=== PATIENT | male | born 1960 | race Caucasian/White ===

== ENCOUNTER 2019-01-08 10:16 | Emergency (ER) | payer MEDICARE ==
--- NOTE | 2019-01-08 10:38 | ED ---
Neurological HPI - HPI Summary HPI Summary: Pt is a 58 y/o M presenting to the ED brought in by EMS for seizures. LEVEL 5 CAVEAT: Full hx and physical is unobtainable due to the pts present altered mental status. Per EMS, the pts states he has early stages of dementia, but EMS is unsure what his baseline normally looks like. He complains of R arm/ shoulder/chest pain, and has an abrasion on his forehead from a seizure he had at 0400 today. - History of Current Complaint Chief Complaint: EDSeizure Stated Complaint: SEISURE PER EMS Hx Obtained From: EMS Hx From Patient Unobtainable Due To: Dementia Onset/Duration: Sudden Onset, Started hours ago, Resolved Timing: Intermittent Episodes Lasting: - minutes Onset Severity: Moderate Current Severity: Moderate Seizure Severity: Moderate Number of Seizures: 2 Pain Intensity: 5 Pain Scale Used: 0-10 Numeric Aggravating: Unknown Alleviating: Unknown Associated Signs and Symptoms: Positive: Pain, AMS Related Hx: Anticoagulants, Seizure - Additional Pertinent History Primary Care Physician: ABHAY - Allergy/Home Medications Allergies/Adverse Reactions: Allergies Allergy/AdvReac Type Severity Reaction Status Date / Time Adhesive Tape Allergy Rash Verified 01/08/19 10:36 ampicillin Allergy Hives Verified 01/08/19 13:12 aspirin Allergy Hives Verified 01/08/19 13:12 bupropion Allergy Unknown Verified 01/08/19 13:12 Reaction Details fentanyl [From Duragesic] Allergy Rash Verified 01/08/19 13:12 insulin detemir Allergy Hives Verified 01/08/19 13:12 [From Levemir U-100 Insulin] latex Allergy Rash Verified 01/08/19 13:12 Penicillins Allergy Hives Verified 01/08/19 13:12 sertraline Allergy Hives Verified 01/08/19 13:12 Home Medications: Home Medications Amitriptyline TAB* [Elavil TAB*] 10 mg PO BEDTIME 01/08/19 [History Confirmed ] Clotrimazole/Betamethasone* [Lotrisone Cream*] 1 applic TOPICAL BID 01/08/19 [ History Confirmed 01/08/19] Dicyclomine CAP* [Bentyl CAP*] 20 mg PO QID 01/08/19 [History Confirmed 01/08/19 ] Digoxin TAB* [Lanoxin TAB*] 0.25 mg PO DAILY 01/08/19 [History Confirmed ] Fluoxetine HCl 80 mg PO DAILY 01/08/19 [History Confirmed 01/08/19] Furosemide TAB* [Lasix TAB*] 20 mg PO SUWEFRSA 01/08/19 [History Confirmed 01/08] Furosemide TAB* [Lasix TAB*] 40 mg PO MOTUTH 01/08/19 [History Confirmed ] Gabapentin CAP(*) [Neurontin 300 CAP(*)] 300 mg PO 1700 01/08/19 [History Confirmed 01/08/19] Gabapentin CAP(*) [Neurontin 300 CAP(*)] 600 mg PO BID 01/08/19 [History Confirmed 01/08/19] Insulin GLARGINE(*) [Lantus(*)] 40 units SUBCUT BEDTIME 01/08/19 [History Confirmed 01/08/19] Insulin GLARGINE(*) [Lantus(*)] 50 units SUBCUT DAILY 01/08/19 [History Confirmed 01/08/19] Insulin LISPRO* [HumaLOG*] 0 - 100 units SUBCUT .TID-QID 01/08/19 [History Confirmed 01/08/19] Levetiracetam XR TAB(NF) [Keppra XR (NF)] 750 mg PO BID 01/08/19 [History Confirmed 01/08/19] Levothyroxine TAB* [Synthroid TAB*] 50 mcg PO QAM 01/08/19 [History Confirmed ] Psyllium Husk (with Sugar) [Metamucil Original Textur] 48.57 % PO DAILY PRN 12/24 [History Confirmed 01/08/19] Simvastatin (NF) [Zocor (NF)] 40 mg PO QPM 01/08/19 [History Confirmed 01/08/19] Triamcinolone 0.1% CREAM(NF) [Kenalog Cream 0.1%(NF)] 1 applic TOPICAL BID 01/08 [History Confirmed 01/08/19] Warfarin TAB(*) [Coumadin TAB(*)] 2 mg PO DAILY 01/08/19 [History Confirmed 12/24] dilTIAZem HCl [Cartia Xt] 120 mg PO DAILY 01/08/19 [History Confirmed 01/08/19] fentaNYL PATCH 12 MCG/HR * [Duragesic Patch 12 Mcg/Hr *] 12 mcg TRANSDERM Q72H 01/08/19 [History Confirmed 01/08/19] fentaNYL PATCH 25 MCG/HR* [Duragesic PATCH 25 Mcg/Hr*] 25 mcg TRANSDERM Q72H 12/24 [History Confirmed 01/08/19] PMH/Surg Hx/FS Hx/Imm Hx Previously Healthy: No Endocrine/Hematology History: Reports: Hx Anticoagulant Therapy, Hx Diabetes Cardiovascular History: Reports: Hx Atrial Fibrillation, Hx Hypercholesterolemia , Hx Hypertension, Other Cardiovascular Problems/Disorders - AFIB, HX DVT 2011 Denies: Hx Congestive Heart Failure, Hx Coronary Artery Disease, Hx Myocardial Infarction Respiratory History: Reports: Hx Chronic Obstructive Pulmonary Disease (COPD), Hx Pulmonary Embolism, Hx Sleep Apnea GI History: Reports: Hx Gastroesophageal Reflux Disease, Hx Irritable Bowel History: Denies: Hx Renal Disease Musculoskeletal History: Reports: Hx Arthritis, Other Musculoskeletal History - spinal stenosis, herniated disc Sensory History: Reports: Hx Contacts or Glasses Denies: Hx Hearing Aid Opthamlomology History: Reports: Hx Contacts or Glasses Neurological History: Reports: Hx Seizures, Other Neuro Impairments/Disorders - TREMORS BILAT HANDS Psychiatric History: Reports: Hx Anxiety, Hx Depression, Hx Community Mental Health Tx Denies: Hx Suicide Attempt - Surgical History Surgery Procedure, Year, and Place: Tonsillectomy, 1970, [facility] in [place], [place]. Bilateral hernia repair, 1972, [facility] in [place], [place]. Appendectomy, 1984, [facility] in [place], [place]. Left total knee replacement , 1991, [place], [place] Hx Anesthesia Reactions: Yes - agitation/agression post sedation - Immunization History Date of Tetanus Vaccine: up to date Date of Influenza Vaccine: up to date Infectious Disease History: No Infectious Disease History: Denies: Traveled Outside the [place] in Last 30 Days - Family History Known Family History: Positive: Cardiac Disease - sister, Diabetes - Social History Alcohol Use: Rare Hx Substance Use: No Substance Use Type: Reports: None Hx Tobacco Use: Yes Smoking Status (MU): Former Smoker Type: Cigarettes Length of Time of Smoking/Using Tobacco: ON AND OFF SINCE AGE 12 Have You Smoked in the Last Year: No Review of Systems - ROS Summary Review of Systems Summary: LEVEL 5 CAVEAT: Full hx and physical is unobtainable due to the pts present altered mental status. Positive: Myalgia Positive: Other - abrasion R forehead All Other Systems Reviewed And Are Negative: No Physical Exam - Summary Physical Exam Summary: VITAL SIGNS: Reviewed. GENERAL: Patient is a well-developed and nourished male who is lying comfortable in the stretcher. Patient is not in any acute respiratory distress. HEAD AND FACE: No signs of trauma. No ecchymosis, hematomas or skull depressions. No sinus tenderness. EYES: PERRLA, EOMI x 2, No injected conjunctiva, no nystagmus. EARS: Hearing grossly intact. Ear canals and tympanic membranes are within normal limits. MOUTH: Oropharynx within normal limits. NECK: Supple, trachea is midline, no adenopathy, no JVD, no carotid bruit, no c- spine tenderness, neck with full ROM. On the lumbar spine, there is a small hematoma. CHEST: Symmetric, tenderness on R side of chest. LUNGS: Clear to auscultation bilaterally. No wheezing or crackles. CVS: Regular rate and rhythm, S1 and S2 present, no murmurs or gallops appreciated. ABDOMEN: Soft, non-tender. No signs of distention. No rebound no guarding, and no masses palpated. Bowel sounds are normal. EXTREMITIES: FROM in all major joints, no edema, no cyanosis or clubbing. NEURO: Alert and oriented x 3. No acute neurological deficits. Speech is normal and follows commands. SKIN: Dry and warm. Abrasion on R side of forehead. GCS: 15 Triage Information Reviewed: Yes Vital Signs On Initial Exam: Initial Vitals Temp Pulse Resp BP Pulse Ox 98.2 F 81 19 134/81 98 01/08/19 10:22 01/08/19 10:22 01/08/19 10:22 01/08/19 10:22 01/08/19 10:22 Vital Signs Reviewed: Yes Diagnostics - Vital Signs Vital Signs Temp Pulse Resp BP Pulse Ox 01/08/19 10:32 98 01/08/19 10:22 98.2 F 81 19 134/81 98 - Laboratory Result Diagrams: 01/08/19 10:37 01/08/19 10:37 Lab Statement: Any lab studies that have been ordered have been reviewed, and results considered in the medical decision making process. - Radiology CXR Radiology Interpretation Completed By: Radiologist Summary of Radiographic Findings: No active cardiopulmonary disease is noted. ED physician has reviewed this report. - CT Brain CT CT Interpretation Completed By: Radiologist Summary of CT Findings: No evidence of intracranial mass or hemorrhage is noted. ED physician has reviewed this report. Abd/pelv CT CT Interpretation Completed By: Radiologist Summary of CT Findings: Hepatic steatosis with tiny hepatic cyst unchanged from 2012. No evidence of intraperitoneal or retroperitoneal hematoma is noted. ED physician has reviewed this report. C-spine CT CT Interpretation Completed By: Radiologist Summary of CT Findings: 1. NO EVIDENCE FOR FRACTURE. 2. MILD TO MODERATE CERVICAL SPONDYLOSIS DESCRIBED. ED physician has reviewed this report. L-spine CT CT Interpretation Completed By: Radiologist Summary of CT Findings: No fracture of the lumbar spine is noted. Degenerative disc disease at L4-L5 and L5-S1 is present. ED physician has reviewed this report. - EKG 1029 Cardiac Rate: NL - 83bpm EKG Rhythm: Sinus Rhythm ST Segment: Normal Ectopy: None EKG Comparison: No Significant Change - from 07/31/16 Re-Evaluation - Re-Evaluation 1st re-eval Re-Evaluation Time: 10:53 Change: Unchanged Comment: The pt experienced a 30 second tonic-clonic seizure. Second Eval Re-Evaluation Time: 11:00 Change: Unchanged Comment: The pt is agitated, aggressive, and a danger to himself and others. Therefore, we gave him 20mg Geodon. Third Eval Re-Evaluation Time: 14:14 Change: Unchanged Comment: After speaking again with Dr. Cooley, we have agreed to transfer the pt to [facility] in [place]. However, [facility] does not have any beds, and we will have to admit the pt to [facility] for monitoring, which is ok with Dr. Cooley. Course/Dx - Course Assessment/Plan: This patient is a 58-year-old male who presents to the emergency department via ambulance with a chief complaint of having seizure and altered mental status. Test results without any significant abnormality except for 3 cc of 11.1, INR 1.25, glucose is 194, lactic acid is 4.2, magnesium 1.7, TSH is 0.01. Urinalysis is negative for UTI. Urine toxicology is negative. In the ED course the patient had a 30 second tonic-clonic seizure for which the patient was given Ativan 2 mg IV. Afterwards the patient became very agitated and a danger to himself and others. Therefore the patient was given Geodon 20 mg IV. Afterwards the patient is resting comfortably. Head CT IMPRESSION: No evidence of intracranial mass or hemorrhage is noted. C spine CT IMPRESSION:. No fracture of the lumbar spine is noted. Degenerative disc disease at L4-L5 and L5-S1 is present. Abdominal and pelvic CT IMPRESSION: 1. NO EVIDENCE FOR FRACTURE. 2. MILD TO MODERATE CERVICAL SPONDYLOSIS DESCRIBED. C-spine CT IMPRESSION: No evidence of intracranial mass or hemorrhage is noted. I discussed my physical exam and findings with Dr. Cooley from neurology and he recommends for the patient to get an EEG and to be given a loading dose of Keppra 1.5 g. I also discussed my physical exam and findings with Dr. Simmons from the hospital services was accepted the patient for admission. At this point the patient is hemodynamically stable and is sleeping comfortable. Dr. Simmons discussed the case with the electronic warfare specialist Dr. Love and they are uncomfortable admitting the patient to this facility since they do not have continuous EEG monitoring. Therefore they requested for the patient to be transferred to a facility with continuous EEG monitoring. Dr. Cooley also recommended that the patient be given 1 g of fosphenytoin. He does not recommend for the patient to be intubated at this time. At this time I discussed the case with Dr. Ortiz (Neurologist) from [facility] and he accepted the patient for transfer. He also agrees that the patient should not be intubated at this time. Patient is hemodynamically stable - Diagnoses Provider Diagnoses: Seizures, Altered mental status, Head contusion, Non-convulsive status epilepticus - Critical Care Time Critical Care Time: 75-104 min Discharge - Sign-Out/Discharge Documenting (check all that apply): Patient Departure - Discharge Plan Condition: Stable Disposition: TRANS HIGHER LVL OF CARE FAC Referrals: Juan Calderon MD [Primary Care Provider] - - Billing Disposition and Condition Condition: STABLE Disposition: Trans Higher Lvl of Care Fac - Attestation Statements Document Initiated by Scribe: Yes Documenting Scribe: Galina Deleon Provider For Whom Scribe is Documenting (Include Credential): Ed Kemp MD. Scribe Attestation: I, Galina Deleon, scribed for Ed Kemp MD. on 01/08/19 at 1614. Scribe Documentation Reviewed: Yes Provider Attestation: The documentation as recorded by the scribe, Galina Deleon accurately reflects the service I personally performed and the decisions made by me, Ed Kemp MD. Status of Scribe Document: Viewed Consult Consult: 1254 - Spoke with Dr. Cooley about the pt's present condition who recommended an EEG and a dose of Keppra. 1510 - Dr. Simmons does not want to admit the pt to [facility]. 1524 - Spoke with Elizabeth at [facility] who is aware of the pt's situation and will be returning the call soon. 1556 - The pt has been accepted to [facility] under Dr. Ortiz in the ED.
[2019-01-08 10:44] LABS: ABS Basophils 0 10^3/ul (0-0.2); ABS Eosinophils 0.1 10^3/ul (0-0.6); ABS Lymphocytes 1.7 10^3/ul (1.0-4.8); ABS Monocytes 0.7 10^3/ul (0-0.8); ABS Neutrophils 8.6 10^3/ul (1.5-7.7); ABS Nucleated RBC 0 10^3/ul; Eosinophil % 0.8 %; Hematocrit 37 % (36-46); Lymphocyte % 15.5 %; Mean Corpuscular HGB Conc 32 g/dL (31-36); Mean Corpuscular Hemoglobin 26 pg (27-31); Mean Corpuscular Volume 81 fL (80-94); Mean Platelet Volume 7.9 fL (7.4-10.4); Nucleated Red Blood Cells % 0; Platelet Count 235 10^3/uL (150-450); Red Blood Count 4.59 10^6 /uL (4.18-5.48); Red Cell Distribution Width 16 % (10.5-15); White Blood Count 11.1 10^3/uL (3.5-10.8)
[2019-01-08 10:52] LABS: INR 1.25 (0.77-1.02)
[2019-01-08] MEDS ORDERED: LORazepam INJ* 2 MG/ML 1 ML VIAL ONE ×2 (10:53→13:55)
[2019-01-08] MEDS ORDERED: LORazepam INJ* 2 MG/ML 1 ML VIAL IV PUSH ONE (10:55)
[2019-01-08 11:02] LABS: ALT 17 U/L (7-52); AST 18 U/L (13-39); Albumin 3.4 g/dL (3.2-5.2); Albumin/Globulin Ratio 1.2 (1-3); Alkaline Phosphatase 103 U/L (34-104); Anion Gap 10 mmol/L (2-11); BUN/Creatinine Ratio 13.3 (8-20); Blood Urea Nitrogen 13 mg/dL (6-24); CO2 Carbon Dioxide 25 mmol/L (22-32); Calcium 9.1 mg/dL (8.6-10.3); Chloride 105 mmol/L (101-111); Creatine Kinase 84 U/L (10-223); EGFR African American 95.4 (>60); EGFR Non-African American 78.8 (>60); Globulin 2.8 g/dL (2-4); Glucose 194 mg/dL (70-100); Magnesium 1.7 mg/dL (1.9-2.7); Potassium 3.8 mmol/L (3.5-5.0); Sodium 140 mmol/L (135-145); Total Protein 6.2 g/dL (6.4-8.9)
[2019-01-08 11:03] LABS: Troponin I 0.02 ng/mL (<0.04)
[2019-01-08] MEDS ORDERED: Ziprasidone IM INJ* 20 MG/ML VIAL ONE (11:10)
[2019-01-08] MEDS ORDERED: Sterile Water for Inj* 10 ML ONE (11:11)
[2019-01-08 11:38] LABS: Acetaminophen < 15 mcg/mL; Alcohol < 10 mg/dL (<10); Salicylate < 2.50 mg/dL (<30)
[2019-01-08] MEDS ORDERED: Ziprasidone IM INJ* 20 MG/ML VIAL IM ONE (11:40)
[2019-01-08] MEDS ORDERED: Iodixanol* (CONTRAST) 320 MG/ML 100 ML SDV IV ONE (11:49)
[2019-01-08 11:55] LABS: TSH (Thyroid Stimulating Horm) 0.01 mcIU/mL (0.34-5.60)
[2019-01-08] MEDS ORDERED: levETIRAcetam IV* 1,500 MG in NS 0.9% 100 ML* 100 ML IVPB ONE (13:00)
[2019-01-08 13:05] LABS: Urine Appearance Cloudy; Urine Bacteria Absent (Absent); Urine Bilirubin Negative (Negative); Urine Blood Negative (Negative); Urine Color Yellow; Urine Glucose Negative (Negative); Urine Ketones 1+ (Negative); Urine Nitrite Negative (Negative); Urine Protein 2+(100 mg/dL) (Negative); Urine Red Blood Cell 1+(3-5/hpf) (Absent); Urine Specific Gravity 1.026 (1.010-1.030); Urine Urobilinogen Negative (Negative); Urine White Blood Cell Trace(0-5/hpf) (Absent)
[2019-01-08 13:15] LABS: Barbiturates Urine Screen None Detected (None Detect); Benzodiazepine Urine Screen None Detected (None Detect); Urine Cannabinoids Screen None Detected (None Detect)
[2019-01-08] MEDS: LORazepam INJ* 2 MG/ML 1 ML VIAL IV PUSH ONE ×2 (13:59→14:06)
[2019-01-08] MEDS ORDERED: Fosphenytoin(*) 1,000 MG in NS 0.9% 50 ML* 50 ML IVPB ONE (14:15)
[2019-01-08] MEDS ORDERED: FOSPHENYTOIN ONE (15:02)
[2019-01-08] MEDS ORDERED: [UNRECOGNIZED DRUG - OTHER] ONE (15:02)
[2019-01-08 16:48] VITALS: BP 109/61
--- NOTE | 2019-01-08 18:51 | CONS ---
NEUROLOGY CONSULTATION NOTE: DATE OF CONSULT: 01/08/19 - EMERGENCY DEPT CONSULTING PROVIDER: Dr. Kemp. REASON FOR CONSULT: Seizures. CHIEF COMPLAINT: Confusion. HISTORY OF PRESENT ILLNESS: Mr. Carbajal is a 58-year-old man with a past medical history of type 2 diabetes; atrial fibrillation, on Coumadin; obesity; COPD; seizure disorder which he was diagnosed by Dr. Nix in 2005. He presented to the emergency department today after having 3 convulsive seizures witnessed by his and a fourth seizure in the ER. The patient had a total of 4 seizures today. The patient apparently had a colonoscopy and endoscopy done by Dr. Monae at [facility] last week. The patient did well. According to his , he was in normal state of health Sunday evening until he woke up Sunday. He went to the pain management clinic and after that he was offered to go for a lunch, but he refused. This was atypical for him. He went home and slept from 12:30 to 5 p.m. He woke up and had a salad. At 10:45, his spouse heard a noise coming from upstairs. The patient had fallen, hitting his head and had a seizure. His spouse noted that he was slightly confused, but refused to come to the ER. At 3:45 on Sunday, the patient woke up and had generalized convulsion. He was foaming at the mouth. He became agitated and slightly aggressive following the seizure. His spouse checked his blood sugar and it was normal. He continued to refuse to come to the ER. She stated that the convulsions lasted approximately less than a minute and the confusion lasted for approximately 5 minutes, but he was able to go back to sleep. He woke up again at 8:30 a.m. and had another seizure. This seizure was described as generalized convulsion. He pulled his down and they both fell on the ground. He did hit his head. He had tonic-clonic movements for approximately 1 minute. He did not lose bowel or bladder function. There was no reported tongue biting. Following the episode, he became confused and again combative, ripping off his clothes and grabbing his spouse aggressively. He had another spell in the ER when he arrived where he had generalized convulsion. Prodromally, he was rubbing his chest and complaining that he could not breathe before he had generalized convulsions. He was verbalizing and yelling out loud. This lasted for 30 seconds. He was given 2 mg of Ativan at 10:55 a.m. The patient continued to have postictal aggression, so he was loaded with Geodon intramuscular injection 20 mg x1. A stat EEG was ordered. I was contacted by the industrial tech instructor, who is concerned about the EEG findings. The patient was in what appeared to be a nonconvulsive pattern with diffuse semi- rhythmic predominantly bifrontal delta slowing with embedded epileptiform discharges with a morphology of polyspike and spike and slow wave discharges. Clinically, the patient was unresponsive during that time. However, after giving 2 mg of Ativan, the EEG did evolve into a more calm diffuse polymorphic 2 -5 Hz delta and theta slowing with occasional semi-rhythmic frontal delta activity. The patient was able to state his name, but still was extremely drowsy. Therefore, he did have a clinical and electrographic response to the Ativan raising the suspicion for nonconvulsive status epilepticus. The patient's spouse denied any recent history of illnesses. He has no fevers or headaches before the hospitalization. There are no sick contacts. He has been sleeping well with no reported history of sleep deprivation. He has not started any new antibiotic agents, but was on antibiotics last week when he was hospitalized for the endoscopy. SEIZURE HISTORY: The patient was hospitalized at [facility] for status epilepticus in 2005. He was following Dr. Nix. His spouse stated that he was hospitalized here for 1 week with intermittent EEG recording throughout the hospitalization. Eventually, the patient required extensive rehab after the hospitalization. He was able to function. The patient was on Depakote 1500 mg p.o. at bedtime and 1000 mg in the morning. He was compliant with the medication. Eventually, he was switched to levetiracetam 750 mg twice daily. The patient continued to have what his spouse described as small seizures at night where he feels like he is slightly confused, but that would immediately go away and he would get better. He has not been hospitalized for seizures since 2005. His last episode of intermittent slight confusion was in 2010, but I see a note from the patient's psychiatrist, who described the patient as having a seizure in 2004. I had been consulted on the patient and accepted the patient to be transferred to the ICU for closer monitoring after contacting [facility] and finding out that they do not have a neuro ICU bed available for continuous EEG monitoring. I recommended to load the patient with fosphenytoin for which he only received 1000 mg x1. He also received levetiracetam 1500 mg x1. Please note that the levetiracetam was just given during the EEG recording and it was not given for the past 3-1/2 hours the patient was hospitalized in the ER. The patient was only treated with Ativan 2 mg x1, but eventually a total dose of 4 mg of Ativan today. PAST MEDICAL HISTORY: Atrial fibrillation, status post ablation in March 2016; irritable bowel syndrome with diarrhea; seizure disorder; COPD; obesity; hypertension; history of DVT and PE, on Coumadin; history of cardiomyopathy; reported history of stroke; chronic back pain; sleep apnea; GERD; hyperlipidemia. PAST SURGICAL HISTORY: Tonsillectomy, appendectomy, hernia repair, left knee surgery. CURRENT MEDICATIONS: 1. Amitriptyline 10 mg p.o. at bedtime. 2. Lotrisone cream 1 application topical b.i.d. 3. Dicyclomine 20 mg p.o. 4 times a day. 4. Digoxin 0.25 mg p.o. daily. 5. Fluoxetine 80 mg p.o. daily. 6. Furosemide 20 mg p.o. daily. 7. Gabapentin 300 mg at nighttime and 600 mg twice a day. 8. Insulin glargine. 9. Insulin lispro. 10. Levetiracetam 750 mg p.o. b.i.d. 11. Levothyroxine 50 mcg. 12. Psyllium husk. 13. Simvastatin 40 mg p.o. at nighttime. 14. Triamcinolone. 15. Warfarin 2 mg p.o. daily. 16. Diltiazem 120 mg p.o. daily. 17. Fentanyl patch 25 and 12 mcg every 72 hours. ALLERGIES: SERTRALINE, PENICILLIN, LATEX, BUPROPION, ASPIRIN, AMPICILLIN, and ADHESIVE TAPE. FAMILY HISTORY: Mother at age 66 from renal failure and complicated from diabetes mellitus. Father at age 56 from metastatic lung cancer. SOCIAL HISTORY: Former smoker, smoking 2 packs per day for 30 years, quitting in 2013. Rare alcohol use. Denies recreational drug use. 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 REVIEW OF SYSTEMS: A 14-point review of systems was performed and all the pertinent positives and negatives are mentioned in the HPI. PHYSICAL EXAM: Vitals: Temperature of 99.5, heart rate of 106, respirations of 15, oxygen saturation of 98%, blood pressure of 109/61. General: Ill- appearing, obese man, in no acute distress. He is sleeping. Head: Mild ecchymosis on the front part on the forehead and the nose area. Eyes: Conjunctivae/corneas are clear. Neck is supple and symmetrical. Lungs: Clear to auscultation bilaterally. Cardiovascular: Irregular rhythm with normal S1, S2 and normal rate. Extremities: Normal range of motion with no cyanosis. No hammertoes or high arches. Skin: No skin lesions or lacerations. Psych: Not applicable. Neurological Examination: Drowsy, minimally awake, but does respond to name calling. He did not recognize his spouse. Otherwise, unable to assess speech and language due to severe drowsy state. He appears to have slight psychomotor slowing, but he did receive Ativan. Cranial Nerves: Pupils are equal, round, reactive to light. Extraocular muscles appear to be intact as he traces and tracks examiner. No facial asymmetry. He was unable to participate with any other examination. Motor Examination: He is able to elevate all 4 extremities to slight and distal noxious stimuli. He has normal tone throughout. Reflexes: Right/left, brachioradialis 1+/1+, biceps 1/1, triceps 1/1, patella 1/1, ankle 0/0, plantar flexor/flexor. Sensation is intact throughout as he localized to pain. Coordination and Gait: We were unable to asses. DIAGNOSTIC STUDIES/LAB DATA: The patient's WBC was 11, hemoglobin was 12, hematocrit of 37, platelets of 235. INR of 1.25. Sodium of 140, potassium of 3.8, chloride of 105, creatinine of 0.98, BUN of 13, glucose of 194, lactic acid is 4.2, magnesium of 1.7. Urinalysis was negative. Urine tox screen was negative. Serum alcohol was less than 10. We have checked for cannabinoids, cocaine, benzodiazepine, amphetamine, phencyclidine, barbiturates, opiates, acetaminophen, digoxin, and salicylates. Please note that the patient's CT head obtained on 01/08/19 showed no evidence of acute intracranial abnormality. He had a CT of the cervical spine completed on 01/08/19 that showed no evidence for fracture, but there is moderate cervical spondylosis. ASSESSMENT AND RECOMMENDATIONS: Mr. Puneet Carbajal is a 58-year-old man who has history of epilepsy and from the description and semiology, I suspect he has frontal lobe seizures, who presented with 4 generalized convulsive seizures. The etiology of the breakthrough seizures is unclear and there is no evidence of any infectious or electrolyte abnormality. However, the patient's lactic acid is elevated and white count is slightly abnormal at 11 given the most likely reactivity from the seizures. The patient does have evidence of slight hypomagnesemia, but not significantly abnormal at 1.7. His spouse stated that he is entirely compliant to the levetiracetam. The patient's clinical and EEG findings are suggestive of nonconvulsive status epilepticus at this time. The patient will need either multiple routine EEGs or continuous EEG monitoring. We entertained the idea of transferring him to the neuro ICU at the [facility], but there were no beds available and therefore I recommended treating the patient here in the ICU. I recommended giving levetiracetam 1500 mg x1 as well as loading him up with fosphenytoin 18 mg/kg. He did receive fosphenytoin, but only 1000 mg was given. I was going to repeat an EEG at 5-6 p.m. [facility], but I received a phone call from the primary team as well as Dr. Kemp that the patient will be going to the [facility] Emergency Department with the accepting provider, Dr. Ortiz. I do not see any indication for intubation at this time as the patient does not have any clinical seizures and he is hemodynamically stable. If he develops any fevers or headaches, I recommend doing a lumbar puncture to evaluate for any viral encephalitis. Please increase the levetiracetam to 1000 mg twice daily. Neuro checks every 1 hour. Continue supportive care. If the patient does stay at [facility], please contact me immediately, so we could arrange an EEG after treating him with antiseizure medications. I discussed these recommendations with Mrs. Carbajal. She would prefer to transfer to [place], especially since the patient sees Dr. Yin [facility] and he has an appointment first thing in the morning. TIME SPENT: I spent a total of 60 minutes of critical care time of which greater than 50% was used to gather history, examining the patient, education and counseling, and discussing the treatment plan with the patient's spouse and Dr. Kemp. [id number]/[facility] #: [id number] D[place]GL[place]
--- NOTE | 2019-01-08 22:40 | EEG ---
ELECTROENCEPHALOGRAPHY: DATE OF STUDY: 01/08/19 - EMERGENCY DEPT DATE OF READ: 01/08/19 ORDERED BY: Dr. Ed Kemp. INDICATION: Mr. Carbajal is a 58-year-old man with history of epilepsy who presented with 3 convulsive seizures and is now in confusion state. This EEG was obtained to evaluate for epileptiform discharges or electrographic seizures. DURATION: The recording started at 1328 and ended at 1414. MEDICATIONS: 1. Keppra. 2. Ativan. 3. Geodon. CLINICAL STATE: Encephalopathic. REPORT: The most prominent feature of this recording were semirhythmic, high amplitude, nearly continuous, polymorphic, 1-2 Hz diffuse delta slowing with embedded superimposed polyspike, spike and slow wave epileptiform discharges, predominantly emanating form the frontal region with the field extending to the temporal region. The discharges were present at a frequency of 1-1.5 Hz with intermittent 0.5 sec of diffuse suppression of the background. Clinically, the patient is confused and unresponsive. This persisted throughout the recording until, the patient received Ativan 1 mg at 1358 and again 1 mg at 1405. Approximately minutes after the Ativan infusion, the background changed to a more diffuse, polymorphic, 402-7 Hz delta and frequency slowing with a semirhythmic, bifrontal, high amplitude continuous delta activity aminating from FP1, F7, FP2, and F8. The last 2 minutes of the recording, the EEG had a background that lacked organization of clearly defined anterior-posterior voltage and frequency gradients and it consisted of the diffuse polymorphic slowing without any significant discharges. Clinically, the patient was able to moan respond to one-step commands but was unable to obtain history. However , there was a different clinical and electrographic response after the Ativan, suggestive of a nonconvulsive status epilepticus pattern. Hyperventilation and photic stimulation were not performed. EKG showed a sinus tachycardia with a rate of 110 beats per minute. IMPRESSION: This is an abnormal EEG due to the presence of semirhythmic frontal predominant delta activity with superimposed diffuse polyspike, spike, and slow wave discharges with a rate of 1-2 Hz at times throughout the recording. After Ativan infusion, the EEG evolved into diffuse polymorphic delta and theta slowing. Clinically, initially the patient was unresponsive abut after Ativan, the patient was able to open his eyes and follow simple commands inconsistently. These findings are suggestive of nonconvulsive status epilepticus. These results were conveyed to [place] and Dr. Kemp. The patient was infused with levetiracetam 1500 mg as well as started on fosphenytoin 1,000 mg IV x 1. [id number]/[facility] #: [id number] [facility]
== END 2019-01-08 16:47 | disposition short-term general hospital (02) ==
LOC: ED 10:16
DX: S00.93XA Contusion of unspecified part of head, initial encounter (principal); X58.XXXA Exposure to other specified factors, initial encounter; R56.9 Unspecified convulsions; R41.82 Altered mental status, unspecified; G40.901 Epilepsy, unspecified, not intractable, with status epilepticus; M51.36 Other intervertebral disc degeneration, lumbar region; M47.892 Other spondylosis, cervical region; K76.0 Fatty (change of) liver, not elsewhere classified; K76.89 Other specified diseases of liver; E11.9 Type 2 diabetes mellitus without complications; I48.91 Unspecified atrial fibrillation; E78.00 Pure hypercholesterolemia, unspecified; K21.9 Gastro-esophageal reflux disease without esophagitis; K58.9 Irritable bowel syndrome, unspecified; M19.90 Unspecified osteoarthritis, unspecified site; F41.9 Anxiety disorder, unspecified; F32.9 Major depressive disorder, single episode, unspecified; Z87.891 Personal history of nicotine dependence; Z88.3 Allergy status to other anti-infective agents; Z91.048 Other nonmedicinal substance allergy status; Z88.6 Allergy status to analgesic agent; Z88.0 Allergy status to penicillin; Z88.8 Allergy status to other drugs, medicaments and biological substances; Z91.040 Latex allergy status; Z79.4 Long term (current) use of insulin; Z79.899 Other long term (current) drug therapy; Z79.01 Long term (current) use of anticoagulants; Z86.718 Personal history of other venous thrombosis and embolism
CPT/HCPCS: 36415; 70450; 71045; 72125; 72131; 74177; 80053; 80177; 80307; 80320; 80329; 81003; 81015; 82140; 82550; 83605; 83735; 84443; 84484; 85025; 85610; 87086; 93005; 95816; 96365; 96368; 96372; 96375; 96376; 99285; G0480; J2060; J3486; Q2009; Q9967

== ENCOUNTER 2021-09-08 14:01 | Inpatient (IN) ==
[2021-09-08 14:29] LABS: ABS Basophils 0.1 10^3/ul (0-0.2); ABS Eosinophils 0.2 10^3/ul (0-0.6); ABS Lymphocytes 3.1 10^3/ul (1.0-4.8); ABS Monocytes 0.7 10^3/ul (0-0.8); Eosinophil % 1.5 %; Hematocrit 42 % (42-52); Hemoglobin 14.3 g/dL (14.0-18.0); Lymphocyte % 23.9 %; Mean Corpuscular HGB Conc 34 g/dL (31-36); Mean Corpuscular Hemoglobin 28 pg (27-31); Mean Corpuscular Volume 80 fL (80-94); Mean Platelet Volume 7.8 fL (7.4-10.4); Platelet Count 348 10^3/uL (150-450); Red Blood Count 5.19 10^6 /uL (4.18-5.48); Red Cell Distribution Width 15 % (10-15); White Blood Count 13.1 10^3/uL (3.5-10.8)
[2021-09-08 14:38] LABS: INR 2.59 (0.86-1.15)
[2021-09-08 14:40] LABS: Calcium 9.2 mg/dL (8.6-10.3); Potassium 4.4 mmol/L (3.5-5.0); Total Bilirubin 0.5 mg/dL (0.2-1.0)
[2021-09-08 14:46] LABS: Troponin I 0.01 ng/mL (<0.03)
[2021-09-08 14:47] LABS: Albumin/Globulin Ratio 1.4 (1-3); Globulin 2.9 g/dL (2-4); Total Protein 6.9 g/dL (6.4-8.9); eGFR CKD-EPI 51.3 (>60)
[2021-09-08] MEDS ORDERED: Iodixanol (CONTRAST) 320 MG/ML 100 ML SDV IV ONE (15:21)
[2021-09-08] MEDS ORDERED: Insulin ISOPH/REG 70/30 SUBCUT ONE (18:26)
[2021-09-08] MEDS ORDERED: Sotalol 120 mg TAB (NF) PO SCH (19:00)
[2021-09-08] MEDS ORDERED: HYDROcodone/ACETAMIN 5/325 mg TAB PO ONE (21:58)
[2021-09-09 01:12] LABS: Rapid COVID-19 Molecular Undetected (Undetected)
[2021-09-09 01:54] LABS: C Reactive Protein 16.65 mg/L (<8.01); HDL Cholesterol 41.9 mg/dL
[2021-09-09] MEDS ORDERED: Dextrose 50% Syringe 50 ml 25 GM/50 ML SYRINGE IV PUSH PRN (03:30)
[2021-09-09 07:18] LABS: Calcium 8.8 mg/dL (8.6-10.3); Magnesium 1.7 mg/dL (1.9-2.7); Potassium 4.2 mmol/L (3.5-5.0); eGFR CKD-EPI 41.7 (>60)
[2021-09-09] MEDS ORDERED: Aminophylline 25 MG/ML VIAL ONE (11:16)
[2021-09-09] MEDS ORDERED: Regadenoson 0.4 MG/5 ML SYRINGE ONE (11:16)
[2021-09-09] MEDS ORDERED: Warfarin - No Order Today **NOTE FOLLOW UP ONE (17:00)
[2021-09-09] MEDS ORDERED: Magnesium Sulfate 2 gm BAG 2 GM/50 ML BAG IVPB ONE (18:59)
[2021-09-09] MEDS ORDERED: Al Hydrox/Mg Hydrox/Simet LIQ 30 ML UDC PO ONE (21:28)
[2021-09-10 07:09] LABS: Hematocrit 39 % (42-52); Mean Corpuscular HGB Conc 34 g/dL (31-36); Mean Corpuscular Hemoglobin 27 pg (27-31); Mean Corpuscular Volume 81 fL (80-94); Platelet Count 197 10^3/uL (150-450); Red Blood Count 4.79 10^6 /uL (4.18-5.48); Red Cell Distribution Width 15 % (10-15); White Blood Count 6.9 10^3/uL (3.5-10.8)
[2021-09-10] MEDS ORDERED: NS 0.9% 1000 ml BAG 1,000 ML IV SCH (07:15)
[2021-09-10 08:12] LABS: Calcium 8.8 mg/dL (8.6-10.3); Magnesium 2.3 mg/dL (1.9-2.7); Potassium 4.6 mmol/L (3.5-5.0); eGFR CKD-EPI 57.5 (>60)
[2021-09-10 10:35] LABS: TSH Ultra Thyroid Stim Horm 1.28 mcIU/mL (0.34-5.60)
[2021-09-10] MEDS: PTO:Albuterol HFA INHALER 8 gm MDI INH PRN (11:49)
[2021-09-10 13:13] LABS: C Reactive Protein 14.29 mg/L (<8.01)
[2021-09-10] MEDS: Pantoprazole VIAL 40 MG VIAL IV SCH (14:04)
[2021-09-10 16:14] LABS: Erythrocyte Sed Rate 3 mm/Hr (0-19)
[2021-09-10] MEDS ORDERED: Insulin ISOPH/REG 70/30 SUBCUT SCH (17:00)
[2021-09-10] MEDS ORDERED: Morphine 2 MG/ML SYRINGE IV ONE (18:37)
[2021-09-10] MEDS: Lidocaine PATCH 5% PATCH TRANSDERM SCH (20:23)
[2021-09-10] MEDS ORDERED: Lidocaine Patch REMOVE NOTE PATCH OFF SCH (21:00)
[2021-09-11 05:55] LABS: Calcium 8.6 mg/dL (8.6-10.3); Potassium 4.7 mmol/L (3.5-5.0); eGFR CKD-EPI 56.6 (>60)
[2021-09-11] MEDS ORDERED: Morphine 2 MG/ML SYRINGE IV ONE (06:04)
[2021-09-11] MEDS: Lidocaine PATCH 5% PATCH TRANSDERM SCH (08:25)
[2021-09-11] MEDS: Pantoprazole VIAL 40 MG VIAL IV SCH (08:26)
[2021-09-11] MEDS ORDERED: Insulin ISOPH/REG 70/30 SUBCUT SCH (08:30)
[2021-09-11 11:59] LABS: INR 1.65 (0.86-1.15)
[2021-09-11 12:29] VITALS: BP 136/74
[2021-09-11] MEDS: PTO:Albuterol HFA INHALER 8 gm MDI INH PRN (13:05)
[2021-09-12 12:54] LABS: Levetiracetam 23.6 mcg/mL
[2021-09-12 13:24] LABS: Lamotrigine 4.7 mcg/mL (2.5 - 15.0)
== END 2021-09-11 15:48 | disposition home or self-care (01) | DRG 205 ==
LOC: ED 14:01 → EDHOLD 23:44 → SUATTDRO 23:44 → MEDTELE 23:44
PROVIDERS: ADMIT Student in an Organized Health Care Education/Training Program; ATTEND Internal Medicine